=== PATIENT | female | born 1950 | race Hispanic/Latino ===

== ENCOUNTER 2021-01-05 10:04 | Day surgery (SDC) | payer MEDICARE ==
[2021-01-05] VITALS (14 sets, daily range): BP systolic 100–122; BP diastolic 54–68
[~2021-01-05] VITALS: Ht 160 cm; Wt 72.6 kg
[2021-01-05] MEDS ORDERED: 0.9%NACL 1000ML 1,000 ML IV ONE (11:08)
[2021-01-05] MEDS ORDERED: LEVO75CA5 PO (11:25)
[2021-01-05] MEDS ORDERED: FENTANYL CITRATE PF 50 MCG/1 ML 2ML VIAL ONE (11:30)
[2021-01-05] MEDS ORDERED: PROPOFOL 10 MG/ML 20ML VIAL IV ONE (11:30)
[2021-01-05] MEDS ORDERED: LIDOCAINE PF 100MG/5ML (2%) SYRINGE 5ML ONE (11:31)
== END 2021-01-05 13:25 | disposition home or self-care (01) ==
LOC: DAH 10:04 → ENDO 10:04
PROVIDERS: ATTEND Internal Medicine Gastroenterology
DX: K86.2 Cyst of pancreas (principal); Z20.822 Contact with and (suspected) exposure to COVID-19; K29.50 Unspecified chronic gastritis without bleeding; R68.81 Early satiety; M81.0 Age-related osteoporosis without current pathological fracture; E11.69 Type 2 diabetes mellitus with other specified complication; E03.9 Hypothyroidism, unspecified; Z80.0 Family history of malignant neoplasm of digestive organs; Z98.890 Other specified postprocedural states; Z72.89 Other problems related to lifestyle; Z86.010 Personal history of colon polyps; Z79.899 Other long term (current) drug therapy; Z85.038 Personal history of other malignant neoplasm of large intestine
CPT/HCPCS: 36415; 43239; 43242; 82150; 82378; 88173; 88305 ×2; 88342; A4215 ×3; A4221; A4222; A4223; A4606; A4620; A4663; J2001; J2704; J3010; J7030